=== PATIENT | female | born 1940 | race Caucasian/White ===

== ENCOUNTER 2024-02-03 09:07 | Emergency (ER) | payer MEDICARE, SELFPAY ==
--- NOTE | ~2024-02-03 | CT_ITS ---
EXAMINATION: CT LUMBAR SPINE WITHOUT CONTRAST CLINICAL INFORMATION: Low back pain. COMPARISON: Radiographs lumbar spine earlier today. TECHNIQUE: Contiguous axial imaging was performed of the lumbar spine without intravenous administration of contrast. Coronal and sagittal reformats were obtained at the acquisition workstation. This CT examination was performed using dose optimization techniques as appropriate, variously including the following: *Automated exposure control *Adjustment of mA and/or kV according to patient size (this includes techniques or standardized protocols for targeted exams where dose is matched to indication/reason for exam; i.e. extremities or head) *Use of iterative reconstruction technique DLP; 268 mGy-cm FINDINGS: Pronounced S-shaped thoracolumbar scoliosis. No evidence of acute compression deformity or traumatic subluxation. Grade 1/2 anterolisthesis of L5 on S1, most likely degenerative in nature. Severe multilevel intervertebral disc height loss with vacuum disc phenomena. Severe multilevel osteophyte complexes with bilateral facet arthropathy leading to various degrees of neural foraminal encroachment and central spinal canal stenosis. Of note, CT is insensitive for the evaluation of the central spinal canal in the absence of intrathecal contrast. Left greater than right SI joint sclerosis more extensive on the iliac side No significant paraspinal soft tissue abnormality. Severe atherosclerotic disease. Partially seen colonic diverticulosis without significant pericolonic inflammatory changes. CT/CT lumbar spine wo IV con IMPRESSION: 1. No acute fracture or traumatic subluxation. 2. Severe multilevel degenerative changes with various degrees of neural foraminal encroachment and central spinal canal stenosis. 3. Left greater than right SI joint sclerosis, correlate clinically for sacroiliitis. 4. Colonic diverticulosis without evidence of acute diverticulitis. Electronically signed by: Dolores Solorzano MD 02/03/2024 03:06 PM EDT
--- NOTE | ~2024-02-03 | XR_ITS ---
EXAMINATION: XR LUMBOSACRAL SPINE CLINICAL INFORMATION: Fall, pain. COMPARISON: None available. TECHNIQUE: Three views of the lumbosacral spine. FINDINGS: Severe leftward scoliosis of the lumbar spine with apex at L3. Evaluation of the vertebral bodies and posterior elements is very limited by radiograph in view of the degree of scoliosis leading to superimposed osseous structures. Equivocal superior endplate compression deformity of the L2 vertebral body and posterior compression deformity of the L5 vertebral body. Severe multilevel intervertebral disc height loss and facet arthropathy. Very prominent multilevel marginal osteophytes. Left greater than right sclerosis of the SI joints, more noticeable on the iliac side No significant paraspinal soft tissue abnormality. No significant paraspinal soft tissue abnormality. Calcific bodies overlying the bilateral renal shadows, possibly related with calculi. Calcific bodies overlying the right upper quadrant that could indicate gallbladder calculi. XR/XR lumbar spine 2-3V IMPRESSION: 1. Equivocal superior endplate compression deformity of the L2 vertebral body and posterior compression deformity of the L5 vertebral body. Consider further evaluation with a CT of the lumbar spine without intravenous contrast, and this radiographic examination is very limited in view of severe scoliosis. 2. Severe lumbar spondylosis. 3. Left greater than right sclerosis of the SI joints suggestive of sacroiliitis. 4. Possible bilateral renal calculi and cholelithiasis, further evaluation with abdominal ultrasound as clinically warranted. Electronically signed by: Dolores Solorzano MD 02/03/2024 10:37 AM EDT
[2024-02-03 09:24] VITALS: BP 121/67; PULSE 72; RESP 16; TEMP 37; O2SAT 98; BMI 20.1
[2024-02-03 10:00] VITALS: BP 116/61; PULSE 67; RESP 16; TEMP 36.6; O2SAT 95
--- NOTE | 2024-02-03 10:09 | ED_ITS ---
HPI - General Adult General Chief complaint: Back Pain/Injury Stated complaint: Fall 1 wk ago on eliquis Time Seen by Provider: 02/03/24 10:08 Source: patient and family (patient's daughters) Mode of arrival: ambulatory Limitations: no limitations History of Present Illness ED Provider: Marialuisa Hurtado PA-C HPI narrative: Patient is an 83 year old assigned female at with a history of recent right hip replacement, on Eliquis, presenting to the emergency department today with low back pain after a fall. Patient states that 9 days ago her left knee gave out and she fell onto her back and has been having pain there ever since. Patient denies any dizziness, lightheadedness, abdominal pain, nausea, vomiting, fever, chills, blurry vision, double vision, loss of vision, chest pain, difficulty breathing, shortness of breath, night sweats, pain with urination, increased urinary frequency, increased urinary urgency, blood in her urine or stool, syncope or a near syncopal episode, bowel incontinence, bladder incontinence, or any other complaints at this time. Patient states that she tried tramadol for the pain but they didn't really help and they caused significant constipation. Onset (ago): day(s) (9) Location: back Relieving factors: immobilization and rest Exacerbating factors: movement Associated symptoms: denies other symptoms Treatments prior to arrival: other (tramadol) Related Data Previous Rx's ?Medication ?Instructions ?Recorded oxycodone 5 mg tablet 5 mg PO Q8H PRN pain #5 tabs 02/03/24 Allergies Allergy/AdvReac Type Severity Reaction Status Date / Time bee pollen [bee stings] Allergy Anaphylaxis Verified 02/03/24 09:28 Penicillins Allergy Rash Verified 02/03/24 09:28 Review of Systems 2 Constitutional: Constitutional: Reports no additional constitutional complaints, Denies chills, Denies fever(s) and Denies night sweats Eyes: Eyes: Reports no additional eye complaints, Denies blurry vision, Denies change in vision, Denies diplopia, Denies eye discharge, Denies loss of vision and Denies eye pain ENT: Denies dizziness Cardiovascular: Cardiovascular: Reports no additional cardiovascular complaints, Denies chest pain, Denies lightheadedness, Denies Loss of Consciousness and Denies dyspnea Respiratory: Respiratory: Reports no additional respiratory complaints and Denies dyspnea Gastrointestinal: Gastrointestinal: Reports no additional gastrointestinal complaints, Denies abdominal pain, Denies melena, Denies hematochezia, Denies change in bowel habits and Denies change in stool character Genitourinary: Genitourinary: Denies hematuria, Denies urinary frequency, Denies dysuria, Denies urinary incontinence, Denies urinary hesitancy and Denies urinary urgency Musculoskeletal: Musculoskeletal: Reports no additional musculoskeletal complaints, Reports back pain, Denies numbness and Denies tingling Neurologic: Denies dizziness, Denies loss of vision, Denies numbness and Denies tingling Psychiatric: Psychiatric: Reports no additional psychiatric complaints Endocrine: Endocrine: Reports no additional endocrine complaints Hematologic/Lymphatic: Hematologic/Lymphatic: Reports no additional hematologic/lymphatic complaints Allergic/Immunologic: Allergic/Immunologic: Reports no additional allergic/immunologic complaints PMFSH Past Medical History Attestation statement: The following information was validated with the patient. (all information validated with the patient's daughtera) Source: old records reviewed, obtained from family (patient's daughters provided additional history and confirmed the history provided by the patient.) and nursing notes reviewed Social History Social History Advance Directives: No Advance Directives Information Provided: Yes Physical Exam ED Vital Signs: Vital Signs - 24 hr 02/03/24 09:24 02/03/24 10:00 02/03/24 12:00 Temperature 98.6 F 97.9 F 98.0 F Pulse Rate 72 67 71 Respiratory Rate 16 16 17 Blood Pressure 121/67 116/61 107/58 L Pulse Oximetry 98 95 98 Oxygen Delivery Method Room Air Room Air Room Air 02/03/24 14:00 Temperature 97.9 F Pulse Rate 72 Respiratory Rate 19 Blood Pressure 102/47 L Pulse Oximetry 97 Oxygen Delivery Method Room Air BMI result Body Mass Index 20.1 Const General: cooperative, no acute distress, alert and awake Nutritional Appearance: well nourished Orientation/consciousness: patient oriented x3 Limitations: no limitations HENMT Head: Yes normal to inspection and Yes atraumatic Ears: hearing grossly normal bilaterally and external ears normal General nose exam: Normal external nose present, no nasal discharge noted and no epistaxis Face and sinus: Yes normal facial exam, No abrasion and No laceration Mouth: Normal oral and palatal mucosa present, no drooling and no muffled voice Eyes General: appearance normal, both eyes and all related structures Periorbital: periorbital findings normal Eyelids: Yes eyelids normal Conjunctivae: conjunctivae normal Pupils: Equal, round and reactive pupils present EOM: EOMs intact bilaterally Neck Neck: Yes normal visual inspection, Yes full ROM and Yes no lymphadenopathy Chest Chest palpation & inspection: normal inspection of the chest Resp Effort & Inspection: normal respiratory effort and able to speak in complete sentences GI Inspection: Yes normal to inspection Neuro General: patient oriented x3 and moves all extremities Cranial nerves: Yes Equal, round and reactive pupils present Cognition (Neuro): normal cognition Extrem General: Yes normal to inspection, Yes full ROM and Yes capillary refill normal Psych Appearance: grossly normal Mental Status: mental status grossly normal Affect: normal affect Attitude: cooperative Thought process: Normal thought process present Thought content: Normal thought content present Insight: Good insight present (Psych) Medications Administered Discontinued Medications Generic Name Dose Route Start Last Admin Trade Name Freq PRN Reason Stop Dose Admin Sodium Chloride 1,000 mls @ 999 mls/hr 02/03/24 11:15 02/03/24 14:49 Ns IV 02/03/24 12:15 Infused .Q1H1M ALESHIA Infusion Medical Decision Making Medical Decision Making MDM Narrative: Patient is an 83 year old assigned female at with a history of recent right hip replacement, on Eliquis, presenting to the emergency department today with low back pain after a fall. Patient's physical exam was unremarkable. Patient's blood work was unremarkable. Patient's lumbar x-ray showed possible compression fractures for which the radiologist recommended CT. I obtained a lumbar CT which showed no evidence of fractures. I explained my physical exam findings as well as all test results to the patient and the patient's daughters. I answered all questions asked by the patient and the patient's daughters. I stressed the importance of the patient taking her medication as directed (either prescribed or as the over the counter packaging recommends). I stressed the importance of the patient following up with her primary care provider and a auricular detoxification specialist. I stressed the importance of the patient returning to the emergency department immediately if her symptoms were to worsen or if she were to develop any dizziness, shortness of breath, difficulty breathing, chest pain, blurry vision, loss of vision, nausea, vomiting, abdominal pain, fever, chills, back pain, or any other complaints. Patient and the patient's daughters verbalized agreement and understanding with this treatment plan and discharge. Differential Diagnosis Differential Diagnoses: The differential diagnosis associated with the presentation includes Lumbar sprain Lumbar strain Lumbar contusion Fall Low back pain Lumbar fracture Admission/Observation Consideration of admission/observation: Escalation of care including admission/observation considered Patient would have been admitted to the hospital had her work up had any findings where hospital admission was appropriate and her clinical presentation warranted hospital admission. Lab Data [facility] Lab Attestation statement: I reviewed the patient's lab results. My interpretation of these results are in the [facility] Rationale portion of this note. 02/03/24 11:19 02/03/24 11:19 Labs: Lab Results 02/03/24 Range/Units 11:19 WBC 8.2 (4.8-10.8) X10*3/uL RBC 3.98 L (4.20-5.50) X10*6/uL Hgb 14.2 (12.0-16.0) g/dl Hct 39.4 (37.0-47.0) % MCV 99.0 H (80.0-98.0) fL MCH 35.7 H (27.0-33.0) pg MCHC 36.0 H (31.0-35.0) g/dl RDW 12.7 (11.0-16.0) % Plt Count 410 H (160-400) X10*3/uL MPV 9.1 L (9.4-12.3) fL Immature Gran % (Auto) 0.2 (0.0-0.4) % Neut % (Auto) 76.8 H (45-73) % Lymph % (Auto) 13.4 L (20-40) % [place] % (Auto) 9.6 (2-11) % Eos % (Auto) 0.0 (0-4) % Baso % (Auto) 0.0 (0-2) % Lymph # (Auto) 1.1 L (1.2-4.9) X10*3/uL [place] # (Auto) 0.8 (0.1-1.2) X10*3/uL Eos # (Auto) 0.0 (0.0-0.4) X10*3/uL Baso # (Auto) 0.0 (0.0-0.2) X10*3/uL Abs Immat Gran (auto) 0.02 (0.00-0.03) X10*3/uL Absolute Neuts (auto) 6.3 (2.0-8.3) x10*3/uL Absolute Nucleated RBC 0.000 (0.0-0.012) X10*3/uL Nucleated RBC % (auto) 0.0 (0.0-0.2) /100WBC Sodium 133 L (135-145) mmol/L Potassium 4.1 (3.3-5.1) mmol/L Chloride 97 (96-108) mmol/L Carbon Dioxide 26 (22-29) mmol/L Anion Gap 14 (12-20) BUN 16 (9-16) mg/dL Creatinine 0.61 (0.5-1.4) mg/dL Estim Creat Clear Calc 55.9 Estimated GFR > 60 Random Glucose 108 (60-115) mg/dL Calcium 9.3 (8.4-10.2) mg/dL Magnesium 2.4 (1.6-2.6) mg/dL Total Bilirubin 0.7 (0.0-1.0) mg/dL AST 20 (5-31) U/L ALT 12 (0-31) U/L Alkaline Phosphatase 110 (39-117) U/L Total Protein 7.0 (6.5-8.0) g/dL Albumin 4.1 (3.5-5.0) g/dL Independent Interpretation I performed an independent interpretation of an: Plain X-Ray and CT Scan Interpretation: My interpretation is in agreement with the radiologist's impression of these imaging studies. L EXAMINATION: XR LUMBOSACRAL SPINE CLINICAL INFORMATION: Fall, pain. COMPARISON: None available. TECHNIQUE: Three views of the lumbosacral spine. FINDINGS: Severe leftward scoliosis of the lumbar spine with apex at L3. Evaluation of the vertebral bodies and posterior elements is very limited by radiograph in view of the degree of scoliosis leading to superimposed osseous structures. Equivocal superior endplate compression deformity of the L2 vertebral body and posterior compression deformity of the L5 vertebral body. Severe multilevel intervertebral disc height loss and facet arthropathy. Very prominent multilevel marginal osteophytes. Left greater than right sclerosis of the SI joints, more noticeable on the iliac side No significant paraspinal soft tissue abnormality. No significant paraspinal soft tissue abnormality. Calcific bodies overlying the bilateral renal shadows, possibly related with calculi. Calcific bodies overlying the right upper quadrant that could indicate gallbladder calculi. XR/XR lumbar spine 2-3V IMPRESSION: 1. Equivocal superior endplate compression deformity of the L2 vertebral body and posterior compression deformity of the L5 vertebral body. Consider further evaluation with a CT of the lumbar spine without intravenous contrast, and this radiographic examination is very limited in view of severe scoliosis. 2. Severe lumbar spondylosis. 3. Left greater than right sclerosis of the SI joints suggestive of sacroiliitis. 4. Possible bilateral renal calculi and cholelithiasis, further evaluation with abdominal ultrasound as clinically warranted. Electronically signed by: Dolores Solorzano MD 02/03/2024 10:37 AM EDT RP Dictated By: Dolores Solorzano Signed By: Electronically signed by Dolores Solorzano 02/03/24 1037 EXAMINATION: CT LUMBAR SPINE WITHOUT CONTRAST CLINICAL INFORMATION: Low back pain. COMPARISON: Radiographs lumbar spine earlier today. TECHNIQUE: Contiguous axial imaging was performed of the lumbar spine without intravenous administration of contrast. Coronal and sagittal reformats were obtained at the acquisition workstation. This CT examination was performed using dose optimization techniques as appropriate, variously including the following: *Automated exposure control *Adjustment of mA and/or kV according to patient size (this includes techniques or standardized protocols for targeted exams where dose is matched to indication/reason for exam; i.e. extremities or head) *Use of iterative reconstruction technique DLP; 268 mGy-cm FINDINGS: Pronounced S-shaped thoracolumbar scoliosis. No evidence of acute compression deformity or traumatic subluxation. Grade 1/2 anterolisthesis of L5 on S1, most likely degenerative in nature. Severe multilevel intervertebral disc height loss with vacuum disc phenomena. Severe multilevel osteophyte complexes with bilateral facet arthropathy leading to various degrees of neural foraminal encroachment and central spinal canal stenosis. Of note, CT is insensitive for the evaluation of the central spinal canal in the absence of intrathecal contrast. Left greater than right SI joint sclerosis more extensive on the iliac side No significant paraspinal soft tissue abnormality. Severe atherosclerotic disease. Partially seen colonic diverticulosis without significant pericolonic inflammatory changes. CT/CT lumbar spine wo IV con IMPRESSION: 1. No acute fracture or traumatic subluxation. 2. Severe multilevel degenerative changes with various degrees of neural foraminal encroachment and central spinal canal stenosis. 3. Left greater than right SI joint sclerosis, correlate clinically for sacroiliitis. 4. Colonic diverticulosis without evidence of acute diverticulitis. Electronically signed by: Dolores Solorzano MD 02/03/2024 03:06 PM EDT RP Dictated By: Dolores Solorzano Signed By: Electronically signed by Dolores Solorzano 02/03/24 1506 Radiology Impression Discussion of test interpretation with radiology: I have reviewed the radiologist's reading. Independent Historian Clinical information obtained from an independent historian. History obtained from or confirmed by: Other (patient's daughters provided additional history and confirmed the history provided by the patient.) Prescription Management I considered prescription management with: Pain Medication (patient prescribed pain medication) Discharge Plan Discharge Clinical Impression: Low back pain, Fall Patient Disposition: Home, Self-Care Instructions: Fall Prevention for Older Adults (ED), Acute Low Back Pain (ED) Additional Instructions: While you are taking the oxycodone - be sure to supplement with miralax as directed on the bottle to keep your bowels regular. Follow up with your primary care provider and a auricular detoxification specialist. Return to the emergency department immediately if your symptoms worsen or if you develop any dizziness, shortness of breath, difficulty breathing, chest pain, blurry vision, loss of vision, nausea, vomiting, abdominal pain, fever, chills, back pain, or any other complaints. Prescriptions: New oxycodone 5 mg tablet 5 mg PO Q8H PRN (Reason: pain) Qty: 5 0RF Rx Instructions: Partial Fill upon patient request. Referrals: [facility] [Provider Group] (Call to establish and follow up with a auricular detoxification specialist.) [facility] [Provider Group] (Call to establish and follow up with a auricular detoxification specialist.) Leif Singleton MD [Primary Care Provider] - Print Language: Panamanian
[2024-02-03 11:24] LABS: MANUAL DIFF FLAG NO
[2024-02-03 11:25] LABS: Hematocrit 39.4 % (37.0-47.0); Hemoglobin 14.2 g/dl (12.0-16.0); Imm Gran Abs Auto 0.02 X10*3/uL (0.00-0.03); Imm Gran Pct Auto 0.2 % (0.0-0.4); Lymphocytes Absolute Auto 1.1 X10*3/uL (1.2-4.9); Lymphocytes Percent Auto 13.4 % (20-40); Mean Corpuscular Hemoglobin 35.7 pg (27.0-33.0); Mean Platelet Volume 9.1 fL (9.4-12.3); Monocytes Absolute Auto 0.8 X10*3/uL (0.1-1.2); Monocytes Percent Auto 9.6 % (2-11); Neutrophils Absolute Auto 6.3 x10*3/uL (2.0-8.3); Neutrophils Percent Auto 76.8 % (45-73); Platelet Count 410 X10*3/uL (160-400); Red Blood Count 3.98 X10*6/uL (4.20-5.50); Red Cell Distribution Width 12.7 % (11.0-16.0); White Blood Count 8.2 X10*3/uL (4.8-10.8)
[2024-02-03 11:39] LABS: Alanine Aminotransferase 12 U/L (0-31); Albumin Level 4.1 g/dL (3.5-5.0); Alkaline Phosphatase 110 U/L (39-117); Anion Gap 14 (12-20); Aspartate Amino Transferase 20 U/L (5-31); Bilirubin Total 0.7 mg/dL (0.0-1.0); Blood Urea Nitrogen 16 mg/dL (9-16); Calcium 9.3 mg/dL (8.4-10.2); Carbon Dioxide 26 mmol/L (22-29); Chloride 97 mmol/L (96-108); Creatinine Clr Calc Pharmacy 55.9; Estimated Glomerular Filt Rate > 60; Glucose Random 108 mg/dL (60-115); Magnesium 2.4 mg/dL (1.6-2.6); Potassium 4.1 mmol/L (3.3-5.1); Sodium 133 mmol/L (135-145)
[2024-02-03 12:00] VITALS: BP 107/58; PULSE 71; RESP 17; TEMP 36.7; O2SAT 98
[2024-02-03] MEDS: 0.9 % Sodium Chloride 1,000 ML 999 ML IV (12:28)
--- NOTE | 2024-02-03 12:29 | PC.NURSE ---
20G inserted to LAC. Tolerated well. Good blood return.
--- NOTE | 2024-02-03 12:29 | PC.NURSE ---
Pt. medicated per JUL.
[2024-02-03 14:00] VITALS: BP 102/47; PULSE 72; RESP 19; TEMP 36.6; O2SAT 97
[2024-02-03 15:38] VITALS: BP 102/47; PULSE 72; RESP 19; TEMP 36.6; O2SAT 97
== END 2024-02-03 15:39 | disposition home or self-care (01) ==
PROVIDERS: Physician Assistant Medical; Emergency Provider Emergency Medicine; PCP Internal Medicine
DX: M54.50 Low back pain, unspecified (principal); R11.0 Nausea; M25.551 Pain in right hip; Z79.01 Long term (current) use of anticoagulants; Z79.899 Other long term (current) drug therapy
CPT/HCPCS: 36415; 72100; 72131; 80053; 83735; 85025; 96360; 96361; 99283; 99284

== ENCOUNTER 2024-02-09 14:04 | Outpatient (AMB) | payer MEDICARE, SELFPAY ==
--- NOTE | 2024-02-09 14:18 | HO.SPINEOV ---
Vital Signs 02/09/24 14:22 Height 5 ft 1 in Weight 108 lb BMI 20.4 Intake Visit Reasons: ED f/u Intake Note: Ms. Durant is here today c/o back and hip pain/ Ed F/u. 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 About 10 or 11 days ago she fell at home. She is trying to go up stairs and fell backwards. She was able to get back into the house and over the course of a few days had escalating amounts of back pain. She did go to the [facility] office in [place], but the pain was too intense and there was some delay with ordering imaging, so she ended up in the [facility] room for evaluation. Initial x-rays suggested there was compression fractures in the lumbar spine, subsequent CT scan did not confirm this. She was given oxycodone and discharged. She has been at home since, but has not been doing well. Specifically, the back pain may have eased off a little bit but now she is having tremendous amounts of pain radiating down into the left side of her low back into her left buttock. It is really intense when she is standing and walking, will generally go away if she lays down. She has been taking tramadol in basically just trying to bear with the pain but it has been so intense she is still very uncomfortable. No pain shooting down the leg, tingling numbness etc.. She did try back brace at home which seemed to help a little when she had it on but when she took it off the pain was very intense. PMH: History of Waldenstrom's disease, glaucoma, left knee pseudogout, scoliosis, AFib on Eliquis, right hip repair in May of 2023, left ovary removed, osteopenia/osteoporosis. She was on Fosamax for time but discontinued this due to side effects. Social hx: She has not smoke, drink use any recreational drugs Medications: Diltiazem, Eliquis, calcium, glucosamine, tramadol, Tylenol, MiraLax Allergies: Penicillin Physical exam: She is awake alert oriented, appears uncomfortable, she is limping walking with a cane today. On my examination, she has pain and tenderness over the left low back and left buttock region. I do not see any bruising. Her motor examination is intact, her left knee was difficult to test secondary to her leg and knee brace which she has been using because of the pseudogout. Reflexes similarly normal with limitations and testing the left leg. SUMMER testing negative. She does have some reproducible pain to manual compression testing of the pelvis. Imaging review: She had a lumbar CT and a lumbar x-ray. The lumbar CT shows a significant levoscoliosis with overlapping degenerative disc disease. No acute fracture seen. Impression: 83-year-old female status post fall maybe 10 or 11 days ago, initially with severe intense back pain which now seems to have migrated somewhat down into her left buttock. She still has back pain to left buttock pain seems to be the overriding feature of her complaints now. No pain shooting down the leg, motor examination is intact. Even though her CT was negative, there is still a chance she could have a subtle compression fracture that would be detectable on MRI STIR image sequencing despite not having classic features of collapse or wedging of the bone. I would like to rule this out with a lumbar MRI. Also, we can evaluate for potential herniated disc which can also have an after fall and classically could give pain shooting into the left buttock with a compression of the L5 nerve. Her pain is so intense and going try to get this done urgently. As a secondary diagnosis, I would also like to exclude a pelvic fracture given the location of the pain. This was not done on her original trauma workup so it like to exclude this. She did have hip x-rays done at [facility] in per her daughter's report, she was told that she did not have a hip fracture. Once I have a chance to review all the imaging, I will give the patient a call. Thank you for allowing us to care for your patient. The total time spent with this visit with this patient was 45 minutes reviewing history, physical exam, lumbar CT imaging review, and implementation of treatment plan or further diagnostic testing Garett Schaefer MD,PhD [facility] [employer] Orders: Orders MR lumbar spine wo con Today M54.50 - Low back pain, unspecified CT bony pelvis Today R10.2 - Pelvic and perineal pain Coding Level of Care Code New Pt Level 4 (28573) Diagnoses Back pain M54.9
[2024-02-09 14:22] VITALS: BMI 20.4
== END 2024-02-09 15:26 | disposition home or self-care (01) ==
PROVIDERS: PCP Internal Medicine; Visit Provider Physician Assistant
DX: M54.9 Dorsalgia, unspecified (principal)
CPT/HCPCS: 99204

== ENCOUNTER → 2024-02-09 14:04 | Outpatient (BNVA) | payer MEDICARE, SELFPAY | PROVIDERS: PCP Internal Medicine; Visit Provider Physician Assistant | DX: M54.9 Dorsalgia, unspecified (principal); M41.86 Other forms of scoliosis, lumbar region; M51.36 Other intervertebral disc degeneration, lumbar region | CPT/HCPCS: 99202 ==

== ENCOUNTER 2024-02-16 16:47 | Outpatient (REF) | payer MEDICARE, SELFPAY ==
--- NOTE | ~2024-02-16 | CT_ITS ---
EXAMINATION: CT PELVIS WITHOUT CONTRAST CLINICAL INFORMATION: Pelvic and perineal pain. COMPARISON: CT of the lumbar spine dated 02/03/2024. TECHNIQUE: Helical scanning was performed with submillimeter collimation through the pelvis. Sagittal and coronal multiplanar 2-D reconstructions were obtained. This CT examination was performed using dose optimization techniques as appropriate, variously including the following: *Automated exposure control *Adjustment of mA and/or kV according to patient size (this includes techniques or standardized protocols for targeted exams where dose is matched to indication/reason for exam; i.e. extremities or head) *Use of iterative reconstruction technique DLP: 339 mGy-cm. FINDINGS: PELVIS: No pelvic mass or organized fluid collection. Sigmoid diverticulosis without evidence of acute diverticulitis. Mild colonic stool burden. No bowel obstruction. Unremarkable uterus and adnexa. Unremarkable urinary bladder. No hydronephrosis or hydroureter. Atherosclerotic calcifications. No abdominal aortic dilatation. No significant lymphadenopathy; however, evaluation limited without IV contrast. No pelvic wall hernia. OSSEOUS STRUCTURES: Chronic proximal right femoral fracture in near-anatomic alignment with peripheral new bone/callus formation. Partial osseous bridging anteriorly involving approximately 10 percent of the fracture surface. The persistent fracture line measures up to 0.9 cm in craniocaudal dimension. No hardware fracture. No perihardware lucency to suggest loosening or infection. [id number] bilateral hip osteoarthritis. Prpycmiw-tg-ygypax osteoarthritis at the symphysis pubis. Mild bilateral sacroiliac joint osteoarthritis. 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 CT/CT bony pelvis IMPRESSION: 1. Chronic proximal right femoral fracture in near-anatomic alignment with peripheral new bone/callus formation. Partial osseous bridging anteriorly involving approximately 10 percent of the fracture surface. No hardware fracture or perihardware lucency to suggest loosening or infection. 2. Phwa-hp-pbcehkva bilateral hip osteoarthritis. 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 Mild bilateral sacroiliac joint osteoarthritis. 3. 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 4. Sigmoid diverticulosis without evidence of acute diverticulitis. Mild colonic stool burden. Electronically signed by: Hayes Willett MD 02/16/2024 08:42 PM EDT
== END 2024-02-16 16:48 | disposition home or self-care (01) ==
LOC: HO.CT 16:47
PROVIDERS: PCP Internal Medicine; Visit Provider Physician Assistant
DX: R10.2 Pelvic and perineal pain (principal)
CPT/HCPCS: 72192